=== PATIENT | male | born 1960 | race Caucasian/White ===

== ENCOUNTER 2017-06-12 16:58 | Emergency (ER) | payer SELFPAY ==
[~2017-06-12] VITALS: Ht 172.7 cm; Wt 82.5 kg
[2017-06-12 17:09] VITALS: Ht 172.7 cm; Wt 82.5 kg
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
[2017-06-12] MEDS ORDERED: HYDR-906 PO (19:12)
[2017-06-12] MEDS ORDERED: IBUP800T25 PO (19:12)
[2017-06-12] MEDS ORDERED: HYDROCODONE/APAP (5/325) TAB PO ONE (19:30)
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
--- NOTE | 2017-06-12 20:32 | RADRPT ---
PROCEDURE: XR Thoracic Spine. CLINICAL INDICATION: Thoracic spine pain. TECHNIQUE: AP and lateral views of the thoracic spine were obtained. Images reviewed on a PACS wor kstation. COMPARISON: No prior studies are available for comparison. FINDINGS: There is a mild left convex scoliosis centered at approximately T7. The vertebral body heights appe ar normal, allowing for the scoliotic deformity. The marrow density are normal in appearance. Ther e is preservation of the intervertebral disc spaces. The neural foramina appear patent. The parasp inal soft tissues unremarkable. The visualized portions of the thorax are unremarkable. IMPRESSION: 1. Mild left convex scoliosis centered at T7. 2. No evidence of fracture or significant degenerative disc disease. RPTAT: HGAS .Rl Pizarro MD, Date Time Electronically viewed and signed by .Rl Pizarro MD, on 06/12/2017 20:32 .S/
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
[2017-06-12 23:00] VITALS: PULSE 68; RESP 18
[2017-06-12 23:34] VITALS: BP 191/97
== END 2017-06-12 23:37 | disposition home or self-care (01) ==
LOC: FTE 16:58
DX: S13.4XXA Sprain of ligaments of cervical spine, initial encounter (principal); S23.9XXA Sprain of unspecified parts of thorax, initial encounter; R07.9 Chest pain, unspecified; V49.40XA Driver injured in collision with unspecified motor vehicles in traffic accident, initial encounter
CPT/HCPCS: 71010; 72040; 72072; 72125